=== PATIENT | male | born 1945 | race Caucasian/White ===

== ENCOUNTER 2016-09-11 18:44 | Emergency (ER) | payer OTHER ==
[~2016-09-11 18:44] MED LIST: ELIQUIS2.5 MG PO
== END 2016-09-11 22:35 | disposition home or self-care (01) ==
LOC: ER 18:44
DX: I11.0 Hypertensive heart disease with heart failure (principal); I50.9 Heart failure, unspecified; I48.91 Unspecified atrial fibrillation; E78.5 Hyperlipidemia, unspecified; Z79.82 Long term (current) use of aspirin; Z79.899 Other long term (current) drug therapy
CPT/HCPCS: 36415